=== PATIENT | male | born 1985 | race Caucasian/White ===

== ENCOUNTER 2019-05-10 22:52 | Emergency (ER) | payer SELFPAY ==
[2019-05-10] MEDS ORDERED: KETOROLAC TROMETHAMINE 30 MG/1ML VIAL IVP ONE (23:23)
[2019-05-10] MEDS ORDERED: 0.9 % SODIUM CHLORIDE 1,000 ML IV ONE (23:23)
[2019-05-10] MEDS ORDERED: MORPHINE SULFATE 5 MG/ML ML IV ONE (23:23)
[2019-05-10] MEDS ORDERED: DIPH,PERTUSS(ACELL),TET VAC/PF 0.5 ML DISP.SYRIN IM ONE (23:32)
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
[2019-05-10] MEDS ORDERED: cefTRIAXone SODIUM 2 GM in 0.9 % SODIUM CHLORIDE 100 ML IV ONE (23:54)
[2019-05-11] MEDS ORDERED: DIPH,PERTUSS(ACELL),TET VAC/PF 0.5 ML DISP.SYRIN IM ONE (00:01)
[2019-05-11] MEDS ORDERED: 0.9 % SODIUM CHLORIDE 250 ML IV ONE (00:02)
[2019-05-11] MEDS ORDERED: cefTRIAXone SODIUM 1 GM INJ ONE (00:02)
[2019-05-11] MEDS ORDERED: POTASSIUM CHLORIDE 20 MEQ TABLET.ER PO ONE (00:48)
[2019-05-11 01:41] VITALS: BP 141/91
[2019-05-11 06:50] LABS: BASOPHILS % 0.6 % (0.0-1.5); NEUTROPHILS # 13.1 # k/uL (1.4-7.7); eGFR (Non-African) > 60
--- NOTE | 2019-05-12 12:31 | Diagnostic Imaging Report ---
ESVIN SAWYER ([employer] SALES REPRESENTATIVE) - ER [facility] [address] [address] Report Submission Date: May 11, 2019 12:57:16 AM CDT Patient Study Name: MARS WATT Date: May 10, 2019 11:52:01 PM CDT Modality Type: DX Gender: M Description: CHEST 1VIEW : 83 Institution: [facility] Physician: ESVIN SAWYER ([employer] SAL[employer] REPRESENTATIVE) - ER Portable chest Clinical history: Cough. Findings: Examination of the chest in single portable AP view demonstrates lungs to be hypoventilated with slight prominence of the bronchovascular markings. There is no coalescent infiltrate. Cardiovascular and mediastinal silhouettes are within normal limits. Impression: 1. Hypoventilation. Electronically signed on May 11, 2019 12:57:16 AM CDT by: Lance LU
== END 2019-05-11 01:35 | disposition short-term general hospital (02) ==
LOC: ED 22:52
DX: S40.811A Abrasion of right upper arm, initial encounter (principal); S40.812A Abrasion of left upper arm, initial encounter; V29.9XXA Motorcycle rider (driver) (passenger) injured in unspecified traffic accident, initial encounter; Y99.8 Other external cause status
CPT/HCPCS: 71045; 80053; 82550; 82553; 83605; 85025; 87040; 90715; 96361; 96374; 96375; 99282; 99284; J0696; J1885; A9270; J7030; S1016